=== PATIENT | female | born 1985 | race Two or more races ===

== ENCOUNTER 2016-05-20 08:23 | Emergency (ER) | payer OTHER ==
[2016-05-20 08:33] VITALS: TEMP 97.7; BMI 26.5
[2016-05-20] MEDS ORDERED: PANTOPRAZOLE SODIUM 40 MG in SODIUM CHLORIDE 100 ML IVPB ONE (08:51)
[2016-05-20] MEDS ORDERED: SODIUM CHLORIDE 1,000 ML IV STA (08:51)
[2016-05-20] MEDS ORDERED: ONDANSETRON 4 MG/2 ML VIAL IVPUSH ONE (08:51)
--- NOTE | 2016-05-20 09:00 | PDOC ---
History of Present Illness - General Chief Complaint: Lightheaded Stated Complaint: NAUSEA, LOSS OF APPETITE, DIZZY Time Seen by Provider: 05/20/16 08:44 History Source: Patient Exam Limitations: No Limitations - History of Present Illness Travel History: No Initial Comments: 05/20/16 09:00 31-year-old female presents to the emergency room for complaints of epigastric cramping, nausea, and mild generalized weakness for the past 2 days. Patient states symptoms began Thursday night after going out to eat dinner but denies fever, chills but complaints of myalgia and arthralgia. Patient denies history of gallstones, UTI irregular menses, pancreatitis, hepatitis or medical history. Timing/Duration: reports: getting worse Quality: reports: moderate, cramping Abdominal Pain Onset Location: reports: epigastric Pain Radiation: reports: no radiation Activities at Onset: reports: eating Aggravating Factors: improves with: Eating Alleviating Factors: improves with: None Past History - Past Medical History Allergies/Adverse Reactions: Allergies Allergy/AdvReac Type Severity Reaction Status Date / Time No Known Allergies Allergy Verified 05/20/16 08:30 Home Medications: Ambulatory Orders NK [No Known Home Medication] 08/29/15 Anemia: No Asthma: No Cancer: No Cardiac Disorders: No Diabetes: No GI Disorders: No HTN: No Suicide Attempt (Hx): No Seizures: No Thyroid Disease: No Other medical history: none - Reproductive History (#): 5 Para: 4 Cervical CA: No Dysfunctional Uterine Bleeding: No Ectopic : No Endometrial CA: No Polycystic Ovaries: No Therapeutic (s) & number: No Tubal Ligation: No Spontaneous : 0 - Immunization History Td Vaccination: Yes Immunization Up to Date: Yes - Psycho/Social/Smoking Cessation Hx Anxiety: No Suicidal Ideation: No Smoking Status: No Smoking History: Never smoked Years of Tobacco Use: 0 Have you smoked in the past 12 months: No Number of Cigarettes Smoked Daily: 0 Cigars Per Day: 0 Information on smoking cessation initiated: No Hx Alcohol Use: No Drug/Substance Use Hx: No Substance Use Type: None Hx Substance Use Treatment: No Patient Lives Alone: No Lives with/in: spouse/SO Review of Systems - Review of Systems Able to Perform ROS?: Yes Constitutional: Yes: Loss of Appetite, Weakness HEENTM: No: Symptoms Reported Respiratory: No: Symptoms reported Cardiac (ROS): No: Symptoms Reported ABD/GI: Yes: Nausea, Poor Appetite, Poor Fluid Intake, Vomiting, Abdominal cramping : No: Symptoms Reported Musculoskeletal: Yes: Joint Pain, Muscle Pain Integumentary: No: Symptoms Reported Neurological: No: Symptoms reported *Physical Exam - Vital Signs Last Vital Signs Temp Pulse Resp BP Pulse Ox 97.7 F 87 18 99/50 99 05/20/16 08:31 05/20/16 08:31 05/20/16 08:31 05/20/16 08:31 05/20/16 08:31 - Physical Exam General Appearance: Yes: Nourished, Appropriately Dressed. No: Apparent Distress HEENT: positive: EOMI, AMADOU. negative: Pale Conjunctivae Neck: positive: Supple Respiratory/Chest: positive: Lungs Clear, Normal Breath Sounds. negative: Respiratory Distress, Accessory Muscle Use Cardiovascular: positive: Regular Rhythm, Regular Rate. negative: Murmur Gastrointestinal/Abdominal: positive: Soft, Tenderness (epigastric. Mild right epigasatric) Musculoskeletal: negative: CVA Tenderness Extremity: positive: Normal Capillary Refill. negative: Pedal Edema Integumentary: positive: Normal Color, Warm, Moist Neurologic: positive: Motor Strength 5/5 ( ambulatory) ED Treatment Course - LABORATORY CBC & Chemistry Diagram: 05/20/16 09:47 05/20/16 09:47 Medical Decision Making - Medical Decision Making 05/20/16 09:10 Patient complains of nausea vomiting myalgia or arthralgia, and nausea for the past 2 days after eating out on Thursday afternoon. Patient denies fever but states is unable to smell food secondary to nausea. Patient states did a home test which was negative. Urine, labs, IV fluids, Protonix, lipase, magnesium, urine , urine and Zofran ordered. 05/20/16 12:02 Laboratory Tests 05/20/16 05/20/16 09:47 09:47 WBC 4.0 D Plt Count 187 Monocytes % 11.9 H Urine Color Dkyellow Urine Appearance Slcloudy Urine pH 6.0 Ur Specific [place] 1.021 Urine Protein 1+ H Ur Leukocyte Esterase 2+ H D Urine RBC None Urine WBC 16 Ur Epithelial Cells Moderate Urine Mucus Many Laboratory Tests 05/20/16 09:47 Urine HCG, Qual Positive Beta hCG pending. Urine culture ordered. Patient may require ultrasound depending on level of beta hCG although patient has no complaints of lower abdominal pain or vaginal bleeding/discharge. 05/20/16 12:05 Laboratory Tests 05/20/16 09:47 Beta HCG, Quant 02573.5 Urine culture was collected and sent. Patient was ordered for an ultrasound but states she cannot wait since she has another child at home that she needs to 10 to. Patient is followed by Dr. Kramer and states she may see him in follow-up secondary to the urinary tract infection. Patient be discharged home with Keflex. Patient also requesting Zofran for nausea. *DC/Admit/Observation/Transfer Diagnosis at time of Disposition: confirmed by positive blood test Urinary tract infection Qualifiers: Urinary tract infection type: acute cystitis Hematuria presence: without hematuria Qualified Code(s): N30.00 - Acute cystitis without hematuria - Discharge Dispostion Disposition: HOME Condition at time of disposition: Improved - Referrals Referrals: Lisbeth Tamayo MD [Primary Care Provider] - Boni Kramer MD [Staff Physician] - - Patient Instructions Printed Discharge Instructions: DI for Urinary Tract Infection (UTI), Suzanna May Improve Nausea Symptoms in Additional Instructions: Please take antibiotics as prescribed until completed. Please take Zofran as needed for nausea. Please follow-up with Dr. Kramer as discussed. Return to ED if his symptoms worsen.
--- NOTE | 2016-05-20 09:00 | PDOC ---
*Physical Exam - Vital Signs Last Vital Signs Temp Pulse Resp BP Pulse Ox 97.7 F 87 18 99/50 99 05/20/16 08:31 05/20/16 08:31 05/20/16 08:31 05/20/16 08:31 05/20/16 08:31 - Physical Exam Comments: 05/20/16 09:00 MIDLEVEL NOTE Pt seen by Midlevel Provider under my direct supervision. Pt interviewed and examined. Ancillary studies reviewed. I agree with plan as outlined by Midlevel Provider. Laboratory Tests 05/20/16 05/20/16 05/20/16 09:47 09:47 09:47 WBC 4.0 D RBC 4.28 D Hgb 11.5 D Hct 34.9 D MCV 81.4 MCHC 32.9 RDW 15.3 Plt Count 187 MPV 9.8 Neutrophils % 57.5 Lymphocytes % 28.0 Monocytes % 11.9 H Eosinophils % 2.1 Basophils % 0.5 Sodium 141 Potassium 3.8 Chloride 108 H Carbon Dioxide 25 Anion Gap 8 BUN 9 Creatinine 0.5 L D Creat Clearance w eGFR > 60 Random Glucose 88 Calcium 8.3 L Magnesium 2.7 H Total Bilirubin 0.2 AST 13 L ALT 14 D Alkaline Phosphatase 86 Total Protein 7.3 Albumin 3.7 Lipase 124 Beta HCG, Quant 73565.5 Urine Color Dkyellow Urine Appearance Slcloudy Urine pH 6.0 Ur Specific [place] 1.021 Urine Protein 1+ H Urine Glucose (UA) Negative Urine Ketones Negative Urine Blood Negative Urine Nitrite Negative Urine Bilirubin Negative Urine Urobilinogen Negative Ur Leukocyte Esterase 2+ H D Urine RBC None Urine WBC 16 Ur Epithelial Cells Moderate Urine Mucus Many Urine HCG, Qual 05/20/16 09:47 WBC RBC Hgb Hct MCV MCHC RDW Plt Count MPV Neutrophils % Lymphocytes % Monocytes % Eosinophils % Basophils % Sodium Potassium Chloride Carbon Dioxide Anion Gap BUN Creatinine Creat Clearance w eGFR Random Glucose Calcium Magnesium Total Bilirubin AST ALT Alkaline Phosphatase Total Protein Albumin Lipase Beta HCG, Quant Urine Color Urine Appearance Urine pH Ur Specific [place] Urine Protein Urine Glucose (UA) Urine Ketones Urine Blood Urine Nitrite Urine Bilirubin Urine Urobilinogen Ur Leukocyte Esterase Urine RBC Urine WBC Ur Epithelial Cells Urine Mucus Urine HCG, Qual Positive Urine culture sent-will treat presumptively with Keflex Patient states she could not wait for a ultrasound ED Treatment Course - LABORATORY CBC & Chemistry Diagram: 05/20/16 09:47 05/20/16 09:47 *DC/Admit/Observation/Transfer Diagnosis at time of Disposition: confirmed by positive blood test UTI (urinary tract infection) Qualifiers: Urinary tract infection type: acute cystitis Hematuria presence: without hematuria Qualified Code(s): N30.00 - Acute cystitis without hematuria - Discharge Dispostion Disposition: HOME Condition at time of disposition: Improved - Prescriptions Prescriptions: Cephalexin [Keflex] 500 mg PO BID #14 capsule Ondansetron HCl [Zofran] 4 mg PO TID PRN #12 tablet PRN Reason: Nausea And/Or Vomiting - Referrals Referrals: Boni Kramer MD [Staff Physician] - Lisbeth Tamayo MD [Primary Care Provider] - - Patient Instructions Printed Discharge Instructions: DI for Urinary Tract Infection (UTI), Suzanna May Improve Nausea Symptoms in Additional Instructions: Please take antibiotics as prescribed until completed. Please take Zofran as needed for nausea. Please follow-up with Dr. Kramer as discussed. Return to ED if his symptoms worsen.
[2016-05-20] MEDS ORDERED: ONDANSETRON 4 MG/2 ML VIAL ONE (09:56)
[2016-05-20] MEDS ORDERED: PANTOPRAZOLE SODIUM 100 ML IVPB ONE (09:56)
[2016-05-20 10:21] LABS: BASOPHIL 0.5 % (0-2.0); EOSINOPHIL 2.1 % (0-4.5); MCH 26.8 pg (25.7-33.7); MCHC 32.9 g/dl (32.0-36.0); MEAN CELL VOLUME 81.4 fl (80-96); MEAN PLT VOLUME 9.8 fl (7.5-11.1); NEUTROPHILS 57.5 % (42.8-82.8); PLATELET COUNT 187 K/MM3 (134-434); RDW 15.3 % (11.6-15.6)
[2016-05-20 10:38] LABS: URINE APPEARANCE SLCLOUDY; URINE BILIRUBIN NEGATIVE (NEGATIVE); URINE BLOOD NEGATIVE (NEGATIVE); URINE COLOR DKYELLOW; URINE GLUCOSE (UA) NEGATIVE (NEGATIVE); URINE KETONE NEGATIVE (NEGATIVE); URINE NITRITE NEGATIVE (NEGATIVE); URINE UROBILINOGEN NEGATIVE E.U./dl (0.2-1.0)
[2016-05-20 10:46] LABS: ALBUMIN 3.7 g/dl (3.4-5.0); ANION GAP 8 (8-16); BILIRUBIN,TOTAL 0.2 mg/dL (0.2-1.0); CALCIUM 8.3 mg/dL (8.5-10.1); CO2 25 mmol/L (21-32); CREATININE 0.5 mg/dL (0.55-1.02); GLUCOSE,RANDOM 88 mg/dL (74-106); MAGNESIUM 2.7 mg/dL (1.8-2.4); SGOT/AST 13 U/L (15-37); SGPT/ALT 14 U/L (12-78); TOT PROT 7.3 g/dl (6.4-8.2)
[2016-05-20 10:47] LABS: ALK PHOS 86 U/L (45-117)
[2016-05-20 11:14] LABS: URINE LEUK ESTERASE 2+ (NEGATIVE); URINE PROTEIN 1+ (NEGATIVE)
[2016-05-20 11:18] LABS: URINE MUCUS MANY; URINE WBC 16 /hpf (3-5)
[2016-05-20 14:08] VITALS: BP 107/80; PULSE 79
== END 2016-05-20 14:08 | disposition home or self-care (01) ==
LOC: JER 08:23
PROC: 3E033GC Introduction of Other Therapeutic Substance into Peripheral Vein, Percutaneous Approach (ICD-10-PCS; principal; 2016-05-20)
PROC: 3E0337Z Introduction of Electrolytic and Water Balance Substance into Peripheral Vein, Percutaneous Approach (ICD-10-PCS; 2016-05-20)
DX: Z33.1 Pregnant state, incidental (principal)
CPT/HCPCS: 36415; 80053; 81003; 81015; 83690; 83735; 84702; 84703; 85025; 87086; 96361; 96365; 96375; 99283-25

== ENCOUNTER 2016-05-25 01:52 | Emergency (ER) | payer OTHER ==
[2016-05-25 02:11] VITALS: BP 116/77; TEMP 98.6; BMI 26.5
[2016-05-25] MEDS ORDERED: MAG HYDROX/AL HYDROX/SIMETH 30 ML UNIT-DOSE CUP PO ONE (02:33)
[2016-05-25] MEDS ORDERED: FAMOTIDINE 20 MG/50 ML IVPB 50 ML IVPB ONE ×2 (02:33→02:35)
[2016-05-25] MEDS ORDERED: SODIUM CHLORIDE 1,000 ML IV STA (02:33)
[2016-05-25] MEDS ORDERED: ONDANSETRON 4 MG/2 ML VIAL IVPUSH ONE (02:33)
[2016-05-25] MEDS ORDERED: ONDANSETRON 4 MG/2 ML VIAL ONE (02:35)
--- NOTE | 2016-05-25 02:37 | PDOC ---
History of Present Illness - General Chief Complaint: Pain Stated Complaint: VOMITING Time Seen by Provider: 05/25/16 02:27 History Source: Patient - History of Present Illness Timing/Duration: reports: constant Abdominal Pain Onset Location: reports: epigastric Past History - Past Medical History Allergies/Adverse Reactions: Allergies Allergy/AdvReac Type Severity Reaction Status Date / Time No Known Allergies Allergy Verified 05/25/16 02:04 Home Medications: Ambulatory Orders Famotidine [Pepcid] 20 mg PO DAILY #14 tablet 05/25/16 Mag Hydrox/Al Hydrox/Simeth [Mylanta Suspension -] 30 ml PO Q6H #1 bottle Ondansetron HCl [Zofran] 4 mg PO Q8H #12 tablet 05/25/16 Anemia: No Asthma: No Cancer: No Cardiac Disorders: No Diabetes: No GI Disorders: No HTN: No Suicide Attempt (Hx): No Seizures: No Thyroid Disease: No - Reproductive History (#): 5 Para: 4 Cervical CA: No Dysfunctional Uterine Bleeding: No Ectopic : No Endometrial CA: No Polycystic Ovaries: No Therapeutic (s) & number: No Tubal Ligation: No Spontaneous : 0 - Immunization History Td Vaccination: Yes Immunization Up to Date: Yes - Psycho/Social/Smoking Cessation Hx Anxiety: No Suicidal Ideation: No Smoking Status: No Smoking History: Never smoked Years of Tobacco Use: 0 Have you smoked in the past 12 months: No Number of Cigarettes Smoked Daily: 0 Cigars Per Day: 0 Hx Alcohol Use: No Drug/Substance Use Hx: No Substance Use Type: None Hx Substance Use Treatment: No Review of Systems - Review of Systems Constitutional: No: Chills, Fever ABD/GI: Yes: Nausea, Vomiting. No: Diarrhea : No: Dysuria *Physical Exam - Vital Signs Last Vital Signs Temp Pulse Resp BP Pulse Ox 98.6 F 103 H 20 116/77 99 05/25/16 02:02 05/25/16 02:02 05/25/16 02:02 05/25/16 02:02 05/25/16 02:02 - Physical Exam General Appearance: Yes: Appropriately Dressed, Moderate Distress HEENT: positive: Normal Voice Neck: positive: Supple Respiratory/Chest: negative: Respiratory Distress Gastrointestinal/Abdominal: positive: Normal Bowel Sounds, Tender (to mid upper abd, no ttp to RUQ), Soft. negative: Distended, Guarding, Rebound Integumentary: positive: Dry, Warm Neurologic: positive: Fully Oriented, Alert, Normal Mood/Affect ED Treatment Course - LABORATORY CBC & Chemistry Diagram: 05/25/16 02:50 05/25/16 02:50 Medical Decision Making - Medical Decision Making 05/25/16 02:34 31-year-old female, denies any past medical history, s/p dose of cytotec 2 days ago and yesterday for therapeutic at 6 weeks gestation, here with abdominal pain with nausea and vomiting that started several hrs ago. Patient c/o upper abdominal pain described as burning in nature with a severity of 10 out of 10. States she has thrown up approximately 4 times and unable to tolerate po. Denies any acute change in bowel movements, fever or chills. No history of similar symptoms in the past. Denies any unusual food or sick contacts. Pt states she continues to have minimal vag bleed. No lower abd pain See exam Upper abd pain w/ n/v, s/p multiple doses of misoprostol for therapeutic AB over the past 48 hrs ?gastritis vs tonja vs pancreatitis, less likely appy, possible SE of cytotec as medication known to have GI sxs (i.e abd pain, dyspepsia, n/v) as potential side effect -GI cocktail -IVF -labs -reassess 05/25/16 02:37 05/25/16 05:12 05/25/16 05:18 05/25/16 05:41 After multiple attempts at pain control, patient now reports feeling better and now requesting discharge. Has follow-up appointment with her [employer] next week 05/25/16 05:42 *DC/Admit/Observation/Transfer Diagnosis at time of Disposition: Epigastric abdominal pain - Discharge Dispostion Disposition: HOME Condition at time of disposition: Improved - Prescriptions Prescriptions: Mag Hydrox/Al Hydrox/Simeth [Mylanta Suspension -] 30 ml PO Q6H #1 bottle Famotidine [Pepcid] 20 mg PO DAILY #14 tablet Ondansetron HCl [Zofran] 4 mg PO Q8H #12 tablet - Patient Instructions Printed Discharge Instructions: Gastritis Additional Instructions: Take medications as prescribed and follow-up with your [employer] next week as already scheduled
[2016-05-25 03:01] LABS: BASOPHIL 0.5 % (0-2.0); EOSINOPHIL 0.3 % (0-4.5); MCH 26.6 pg (25.7-33.7); MCHC 33.1 g/dl (32.0-36.0); MEAN CELL VOLUME 80.4 fl (80-96); MEAN PLT VOLUME 9.8 fl (7.5-11.1); PLATELET COUNT 222 K/MM3 (134-434); RDW 14.7 % (11.6-15.6); WHITE BLOOD COUNT 6.7 K/mm3 (4.0-10.0)
[2016-05-25 03:24] LABS: ALK PHOS 80 U/L (45-117); ANION GAP 11 (8-16); BILIRUBIN,TOTAL 0.4 mg/dL (0.2-1.0); CALCIUM 9.3 mg/dL (8.5-10.1); CO2 27 mmol/L (21-32); CREATININE 0.6 mg/dL (0.55-1.02); GLUCOSE,RANDOM 104 mg/dL (74-106); SGPT/ALT 23 U/L (12-78)
[2016-05-25 03:28] LABS: SGOT/AST 17 U/L (15-37)
[2016-05-25] MEDS ORDERED: RANITIDINE HCL 150 MG TABLET (FP) PO ONE (04:11)
[2016-05-25] MEDS ORDERED: RANITIDINE HCL 150 MG TABLET (FP) ONE (04:19)
[2016-05-25] MEDS ORDERED: MAG HYDROX/AL HYDROX/SIMETH 30 ML UNIT-DOSE CUP ONE (04:24)
[2016-05-25 04:34] LABS: URINE APPEARANCE SLCLOUDY; URINE BILIRUBIN NEGATIVE (NEGATIVE); URINE COLOR YELLOW; URINE GLUCOSE (UA) NEGATIVE (NEGATIVE); URINE KETONE 1+ (NEGATIVE); URINE LEUK ESTERASE NEGATIVE (NEGATIVE); URINE NITRITE NEGATIVE (NEGATIVE); URINE UROBILINOGEN 2.0 E.U/dl E.U./dl (0.2-1.0)
[2016-05-25 04:36] LABS: URINE BLOOD 3+ (NEGATIVE); URINE PROTEIN 1+ (NEGATIVE)
[2016-05-25 04:44] LABS: URINE MUCUS MODERATE; URINE RBC 1404 /hpf (0-3); URINE WBC 2 /hpf (3-5)
[2016-05-25] MEDS ORDERED: OXYCODONE/APAP 5/325MG COMBO TABLET PO ONE (05:11)
[2016-05-25] MEDS ORDERED: METOCLOPRAMIDE HCL INJECTION 10 MG/2 ML VIAL IVPB ONE (05:11)
[2016-05-25] MEDS ORDERED: METOCLOPRAMIDE HCL INJECTION 10 MG/2 ML VIAL ONE (05:12)
[2016-05-25] MEDS ORDERED: OXYCODONE/APAP 5/325MG COMBO TABLET ONE (05:12)
[2016-05-25] MEDS ORDERED: LORazepam 1 MG TABLET PO ONE (05:27)
[2016-05-25] MEDS ORDERED: LORazepam 0.5 MG TABLET ONE (05:28)
[2016-05-25 05:46] VITALS: PULSE 88
== END 2016-05-25 05:46 | disposition home or self-care (01) ==
LOC: JER 01:52
PROC: 3E033GC Introduction of Other Therapeutic Substance into Peripheral Vein, Percutaneous Approach (ICD-10-PCS; principal; 2016-05-25)
PROC: 3E0337Z Introduction of Electrolytic and Water Balance Substance into Peripheral Vein, Percutaneous Approach (ICD-10-PCS; 2016-05-25)
DX: R10.13 Epigastric pain (principal)
CPT/HCPCS: 36415; 80053; 81003; 81015; 83690; 84702; 84703; 85025; 96361; 96365; 96375; 99282-25

== ENCOUNTER 2016-08-02 18:44 | Emergency (ER) | payer OTHER ==
[2016-08-02 18:50] VITALS: BP 129/74; PULSE 88; TEMP 98.1; BMI 27.6
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
[2016-08-02] MEDS ORDERED: IBUPROFEN 600 MG TABLET (FP) PO ONE ×2 (20:15→20:40)
== END 2016-08-02 20:45 | disposition home or self-care (01) ==
LOC: JERFT 18:44
DX: S20.212A Contusion of left front wall of thorax, initial encounter (principal); Y04.2XXA Assault by strike against or bumped into by another person, initial encounter; Y93.89 Activity, other specified; Y92.9 Unspecified place or not applicable
CPT/HCPCS: 71101-TC; 84703; 99281-25

== ENCOUNTER 2022-11-02 18:14 | Emergency (ER) | payer OTHER ==
[2022-11-02 18:21] VITALS: RESP 18; BMI 32.1
[2022-11-02 20:08] LABS: BASO % 0.3 % (0-2.0); EOS % 1.1 % (0-4.5); HEMATOCRIT 35.6 % (32.4-45.2); LYMPH % 26.5 % (8-40); MCH 26.7 pg (25.7-33.7); MCHC 33.8 g/dl (32.0-36.0); MEAN CELL VOLUME 79.2 fl (80-96); MEAN PLT VOLUME 9.1 fl (7.5-11.1); MONO % 8.2 % (3.8-10.2); NEUT % 63.9 % (42.8-82.8); PLATELET COUNT 246 10^3/uL (134-434); RDW 14.5 % (11.6-15.6)
[2022-11-02 20:30] LABS: POTASSIUM 4.2 mmol/L (3.5-5.1)
[2022-11-02 20:32] LABS: ALBUMIN 3.5 g/dl (3.4-5.0); BLOOD UREA NITROGEN 7.3 mg/dL (7-18); CALCIUM 8.8 mg/dL (8.5-10.1)
[2022-11-02 20:35] LABS: CREATININE 0.4 mg/dL (0.55-1.3)
[2022-11-02 20:37] LABS: BILIRUBIN,TOTAL 0.2 mg/dL (0.2-1); TOT PROT 7.5 g/dl (6.4-8.2)
[2022-11-02 20:39] LABS: EPI CELLS >36 /uL (0-25.1); HYALINE CASTS 3 /uL (0-3.1); PH,URINE 6.5 (5.0-8.0); URINE APPEARANCE CLEAR; URINE BACTERIA 902 /uL (0-1359); URINE BILIRUBIN NEGATIVE (NEGATIVE); URINE COLOR YELLOW; URINE GLUCOSE (UA) NEGATIVE (NEGATIVE); URINE KETONE NEGATIVE (NEGATIVE); URINE LEUK ESTERASE 1+ (NEGATIVE); URINE NITRITE NEGATIVE (NEGATIVE); URINE PROTEIN NEGATIVE (NEGATIVE); URINE RBC 10 /uL (0-23.9); URINE UROBILINOGEN 0.2 mg/dL (0.2-1.0); URINE WBC 35 /uL (0-25.8)
[2022-11-02 21:29] LABS: ACTIVATED PTT 30.1 SECONDS (25.2-36.5); INR 0.94 (0.83-1.09); PROTHROMBIN TIME (PATIENT) 10.9 SEC (9.7-13.0)
[2022-11-02] MEDS ORDERED: CEPHALEXIN MONOHYDRATE 500 MG CAPSULE (UD) PO ONE (22:00)
[2022-11-02] MEDS ORDERED: CEPHALEXIN MONOHYDRATE 500 MG CAPSULE (UD) ONE (22:18)
[2022-11-02 22:38] VITALS: BP 117/71; PULSE 84; TEMP 98
== END 2022-11-02 22:32 | disposition home or self-care (01) ==
LOC: JER 18:14
DX: O00-O9A Pregnancy, childbirth and the puerperium (principal); O23.91 Unspecified genitourinary tract infection in pregnancy, first trimester; R82.71 Bacteriuria; O99.281 Endocrine, nutritional and metabolic diseases complicating pregnancy, first trimester; E05.90 Thyrotoxicosis, unspecified without thyrotoxic crisis or storm; Z3A.10 10 weeks gestation of pregnancy
CPT/HCPCS: 36415; 76801-TC; 80053; 81003; 84439; 84443; 84702; 85025; 85610; 85730; 86850; 86900; 86901; 87086; 87186; 99284-25

== ENCOUNTER 2023-01-20 13:35 | Observation (INO) | payer OTHER ==
[2023-01-20] MEDS ORDERED: ACETAMINOPHEN 500 MG TABLET (FP) ONE (14:18)
[2023-01-20 14:56] LABS: BASO % 0.3 % (0-2.0); EOS % 1.3 % (0-4.5); HEMATOCRIT 30.8 % (32.4-45.2); HEMOGLOBIN 10.2 GM/dL (10.7-15.3); LYMPH % 18.3 % (8-40); MCH 27.7 pg (25.7-33.7); MEAN CELL VOLUME 83.8 fl (80-96); MEAN PLT VOLUME 9.1 fl (7.5-11.1); MONO % 8.8 % (3.8-10.2); NEUT % 71.3 % (42.8-82.8); PLATELET COUNT 263 10^3/uL (134-434); RBC 3.68 M/mm3 (3.60-5.2); RDW 15.5 % (11.6-15.6); WHITE BLOOD COUNT 8.9 K/mm3 (4.0-10.0)
[2023-01-20] MEDS ORDERED: ACETAMINOPHEN 500 MG TABLET (FP) PO ONE (15:00)
[2023-01-20 15:04] LABS: INR 0.96 (0.83-1.09); PROTHROMBIN TIME (PATIENT) 11.1 SEC (9.7-13.0)
[2023-01-20 15:07] LABS: ACTIVATED PTT 28.8 SECONDS (25.2-36.5)
[2023-01-20 15:10] LABS: EPI CELLS 31 /uL (0-25.1); HYALINE CASTS 0 /uL (0-3.1); URINE APPEARANCE CLEAR; URINE BACTERIA 116 /uL (0-1359); URINE BILIRUBIN NEGATIVE (NEGATIVE); URINE COLOR YELLOW; URINE GLUCOSE (UA) NEGATIVE (NEGATIVE); URINE KETONE NEGATIVE (NEGATIVE); URINE LEUK ESTERASE TRACE (NEGATIVE); URINE NITRITE NEGATIVE (NEGATIVE); URINE PROTEIN NEGATIVE (NEGATIVE); URINE RBC 16 /uL (0-23.9); URINE UROBILINOGEN 0.2 mg/dL (0.2-1.0); URINE WBC 43 /uL (0-25.8)
[2023-01-20 15:11] LABS: POTASSIUM 3.7 mmol/L (3.5-5.1)
[2023-01-20 15:14] LABS: CALCIUM 8.2 mg/dL (8.5-10.1)
[2023-01-20 15:15] LABS: ALBUMIN 2.9 g/dl (3.4-5.0)
[2023-01-20 15:17] LABS: CREATININE 0.4 mg/dL (0.55-1.3)
[2023-01-20 15:19] LABS: BILIRUBIN,TOTAL 0.2 mg/dL (0.2-1)
[2023-01-20 17:01] LABS: BASO % 0.4 % (0-2.0); EOS % 1.3 % (0-4.5); HEMATOCRIT 30.1 % (32.4-45.2); LYMPH % 19.4 % (8-40); MCH 27.9 pg (25.7-33.7); MCHC 33.3 g/dl (32.0-36.0); MEAN CELL VOLUME 83.6 fl (80-96); MEAN PLT VOLUME 9.1 fl (7.5-11.1); MONO % 7.7 % (3.8-10.2); NEUT % 71.2 % (42.8-82.8); PLATELET COUNT 246 10^3/uL (134-434); RDW 14.6 % (11.6-15.6); WHITE BLOOD COUNT 8.5 K/mm3 (4.0-10.0)
[2023-01-20 17:20] LABS: POTASSIUM 3.5 mmol/L (3.5-5.1)
[2023-01-20 17:23] LABS: CALCIUM 8.4 mg/dL (8.5-10.1)
[2023-01-20 17:24] LABS: ALBUMIN 2.8 g/dl (3.4-5.0); BLOOD UREA NITROGEN 6.3 mg/dL (7-18)
[2023-01-20 17:27] LABS: CREATININE 0.4 mg/dL (0.55-1.3)
[2023-01-20 17:29] LABS: BILIRUBIN,TOTAL 0.2 mg/dL (0.2-1); TOT PROT 6.8 g/dl (6.4-8.2)
[2023-01-20 17:36] LABS: ACTIVATED PTT 29.4 SECONDS (25.2-36.5); INR 0.97 (0.83-1.09); PROTHROMBIN TIME (PATIENT) 11.3 SEC (9.7-13.0)
[2023-01-20 20:25] VITALS: BMI 34.0
[2023-01-21 07:42] LABS: BASO % 0.4 % (0-2.0); EOS % 1.4 % (0-4.5); HEMATOCRIT 28.2 % (32.4-45.2); HEMOGLOBIN 9.5 GM/dL (10.7-15.3); LYMPH % 21.6 % (8-40); MCH 27.9 pg (25.7-33.7); MCHC 33.6 g/dl (32.0-36.0); MEAN CELL VOLUME 83.1 fl (80-96); MEAN PLT VOLUME 8.9 fl (7.5-11.1); MONO % 8.4 % (3.8-10.2); NEUT % 68.2 % (42.8-82.8); PLATELET COUNT 224 10^3/uL (134-434); RBC 3.39 M/mm3 (3.60-5.2); RDW 14.9 % (11.6-15.6); WHITE BLOOD COUNT 7.7 K/mm3 (4.0-10.0)
[2023-01-21 07:57] LABS: INR 1.05 (0.83-1.09); PROTHROMBIN TIME (PATIENT) 12.2 SEC (9.7-13.0)
[2023-01-21 08:00] LABS: ACTIVATED PTT 29.3 SECONDS (25.2-36.5)
[2023-01-21 08:14] LABS: POTASSIUM 3.5 mmol/L (3.5-5.1)
[2023-01-21 08:35] LABS: BLOOD UREA NITROGEN 8.1 mg/dL (7-18); CALCIUM 8.2 mg/dL (8.5-10.1)
[2023-01-21 08:36] LABS: ALBUMIN 2.6 g/dl (3.4-5.0)
[2023-01-21 08:39] LABS: CREATININE 0.4 mg/dL (0.55-1.3)
[2023-01-21 08:40] LABS: BILIRUBIN,TOTAL 0.5 mg/dL (0.2-1); TOT PROT 6.2 g/dl (6.4-8.2)
[2023-01-21 13:25] VITALS: RESP 18
[2023-01-21 17:29] VITALS: BP 120/75; PULSE 102
[2023-01-21 18:55] VITALS: TEMP 98
== END 2023-01-21 19:20 | disposition home or self-care (01) ==
LOC: JDEL 13:35 → JLDR 19:15 → J3W 21:01
PROVIDERS: ADMIT Obstetrics & Gynecology; ATTEND Obstetrics & Gynecology
DX: O26.892 Other specified pregnancy related conditions, second trimester (principal); Z3A.21 21 weeks gestation of pregnancy; R10.32 Left lower quadrant pain
CPT/HCPCS: 36415; 76775-TC; 76801-TC; 80053; 81003; 84439; 84443; 84481; 85025; 85362; 85384; 85610; 85730; 87086; G0378

== ENCOUNTER 2023-05-11 01:55 | Inpatient (IN) | payer OTHER ==
[2023-05-11] MEDS: ELECTROLYTE-148 SOLN 1,000 ML IV SCH (02:50)
[2023-05-11 02:58] VITALS: BMI 35.4
[2023-05-11] MEDS ORDERED: BUTORPHANOL TARTRATE 2 MG/ML VIAL ONE (03:22)
[2023-05-11] MEDS ORDERED: PROMETHAZINE HCL 25 MG/1 ML VIAL ONE (03:23)
[2023-05-11] MEDS: PROMETHAZINE HCL 25 MG/1 ML VIAL IVPB ONE (03:30)
[2023-05-11] MEDS: BUTORPHANOL TARTRATE 1 MG/ML VIAL IVPB ONE (03:30)
[2023-05-11 03:53] LABS: BASO % 0.3 % (0-2.0); EOS % 1.3 % (0-4.5); HEMATOCRIT 33.3 % (32.4-45.2); HEMOGLOBIN 11.4 GM/dL (10.7-15.3); MCH 28.4 pg (25.7-33.7); MCHC 34.2 g/dl (32.0-36.0); MEAN CELL VOLUME 83.1 fl (80-96); MEAN PLT VOLUME 10.8 fl (7.5-11.1); NEUT % 55.4 % (42.8-82.8); PLATELET COUNT 152 10^3/uL (134-434); RDW 14.3 % (11.6-15.6); WHITE BLOOD COUNT 7.9 K/mm3 (4.0-10.0)
[2023-05-11 04:08] LABS: INR 0.92 (0.83-1.09); PROTHROMBIN TIME (PATIENT) 10.7 SEC (9.7-13.0)
[2023-05-11 04:09] LABS: POTASSIUM 3.7 mmol/L (3.5-5.1)
[2023-05-11 04:10] LABS: CALCIUM 10.3 mg/dL (8.5-10.1)
[2023-05-11 04:11] LABS: ACTIVATED PTT 27.4 SECONDS (25.2-36.5); BLOOD UREA NITROGEN 12.9 mg/dL (7-18)
[2023-05-11 04:14] LABS: CREATININE 0.5 mg/dL (0.55-1.3)
[2023-05-11] MEDS ORDERED: LIDOCAINE HCL 1% PRESERVATIVE FREE - 30ML VIAL ONE (04:36)
[2023-05-11] MEDS ORDERED: OXYTOCIN 20 UNITS in 0.9% NS 20 UNIT/1,000 ML INFUS.BAG IV ONE (04:36)
[2023-05-11] MEDS: OXYTOCIN 20 UNITS in 0.9% NS 20 UNIT/1,000 ML INFUS.BAG IV SCH (05:00)
[2023-05-11] MEDS ORDERED: ACETAMINOPHEN 325 MG TABLET (FP) PO PRN (05:11)
[2023-05-11] MEDS ORDERED: METHYLERGONOVINE MALEATE 0.2 MG/1 ML AMP IM PRN (05:11)
[2023-05-11] MEDS ORDERED: BISACODYL 10 MG SUPP.RECT RC PRN (05:11)
[2023-05-11] MEDS ORDERED: oxyCODONE HCL 5 MG TABLET PO PRN (05:11)
[2023-05-11] MEDS ORDERED: BENZOCAINE 20% 57 GM BOTTLE TP PRN (05:11)
[2023-05-11] MEDS ORDERED: WITCH HAZEL 50% (TUCKS) 40 PAD/JAR PAD TP PRN (05:11)
[2023-05-11] MEDS ORDERED: BENZOCAINE 28 GM HEMORRHOIDAL OINTMENT TP PRN (05:11)
[2023-05-11 05:35] LABS: CORD BASE EXCESS -3.4 mmol/L (0-2); CORD HCO3 26.6 mmHg (20-29); CORD PCO2 69.8 mmHg (30-78); CORD pH 7.199 (7.14-7.44)
[2023-05-11 05:36] LABS: CORD HCO3 24.3 mmHg (20-29); CORD PCO2 46.9 mmHg (30-78); CORD pH 7.332 (7.14-7.44)
[2023-05-11 06:38] VITALS: RESP 18
[2023-05-11] MEDS ORDERED: IBUPROFEN 600 MG TABLET (FP) PO ONE (07:03)
[2023-05-11] MEDS: IBUPROFEN 600 MG TABLET (FP) PO PRN (07:05)
[2023-05-11] MEDS: PRENATAL VITAMINS W/ FOLIC ACID TABLET (FP) PO SCH (09:53)
[2023-05-11] MEDS: SENNOSIDES/DOCUSATE COMBO (SENNA PLUS) TABLET (UD) PO PRN (21:25)
[2023-05-12 07:27] LABS: BASO % 0.7 % (0-2.0); EOS % 1.5 % (0-4.5); HEMATOCRIT 25.9 % (32.4-45.2); HEMOGLOBIN 8.6 GM/dL (10.7-15.3); LYMPH % 34.7 % (8-40); MCHC 33.1 g/dl (32.0-36.0); MEAN CELL VOLUME 84.4 fl (80-96); MEAN PLT VOLUME 11.1 fl (7.5-11.1); MONO % 8.5 % (3.8-10.2); NEUT % 54.6 % (42.8-82.8); PLATELET COUNT 130 10^3/uL (134-434); RBC 3.06 M/mm3 (3.60-5.2); RDW 14.3 % (11.6-15.6); WHITE BLOOD COUNT 7.9 K/mm3 (4.0-10.0)
[2023-05-12] MEDS: ENOXAPARIN NA (PORCINE) 40 MG/0.4 ML DISP.SYRIN SQ ONE (22:15)
[2023-05-12 22:49] VITALS: TEMP 97.6
[2023-05-13 08:17] VITALS: BP 105/61; PULSE 79
== END 2023-05-13 13:30 | disposition home or self-care (01) | DRG 560 ==
LOC: JLDR 01:55 → J3W 07:55
PROVIDERS: ADMIT Obstetrics & Gynecology; ATTEND Obstetrics & Gynecology
PROC: 10E0XZZ Delivery of Products of Conception, External Approach (ICD-10-PCS; principal; 2023-05-11)
PROC: 0KQM0ZZ Repair Perineum Muscle, Open Approach (ICD-10-PCS; 2023-05-11)
DX: O70.1 Second degree perineal laceration during delivery (principal); Z3A.38 38 weeks gestation of pregnancy; Z37.0 Single live birth
CPT/HCPCS: 36415; 36600; 80048; 82803; 85025; 85610; 85730; 86780; 86850; 86900; 86901; 93970-TC